=== PATIENT | male | born 1980 | race Caucasian/White ===

== ENCOUNTER 2017-01-03 05:27 | Inpatient (IN) | payer OTHER, MEDICAID ==
[~2017-01-03] VITALS: Ht 170.2 cm; Wt 101.6 kg
[~2017-01-03 05:27] MED LIST: ABILIFY; MOTRIN; NORCO; PRILOSEC40 MG PO; TAMIFLU; ZOF4 PO; ZOFRAN
[2017-01-03 06:53] LABS: CALCIUM 9.6 mg/dL (8.5-10.1); CARBON DIOXIDE 26.6 mmol/L (21-32); CHLORIDE SERUM 104 mmol/L (98-107); CREATININE SERUM 0.9 mg/dL (0.7-1.3); GFR1 > 60 mL/min; GLUCOSE SERUM 114 mg/dL (74-106); POTASSIUM SERUM 4.3 mmol/L (3.5-5.1); SODIUM SERUM 141 mmol/L (136-145)
[2017-01-03 06:58] LABS: ALBUMIN 4.1 g/dL (3.4-5.0); ALKALINE PHOSPHATASE 66 U/L (46-116); ALT/SGPT 28 U/L (16-63); AST/SGOT 25 U/L (15-37); BILIRUBIN TOTAL 0.55 mg/dL (0.20-1.00); LIPASE 126 IU/L (73-393)
[2017-01-03 07:01] LABS: BASOPHIL % 0.4 % (0-2); PLATELET COUNT 314 x10^3mcL (130-400); RED CELL DISTRIBUTION WIDTH 13.4 % (11.5-14.5)
[2017-01-03 07:03] LABS: TOTAL PROTEIN, SERUM 8.3 g/dL (6.4-8.2)
[2017-01-03 08:36] LABS: T3 TOTAL 1.4 ng/mL
[2017-01-03 08:45] LABS: MAGNESIUM 2.1 mg/dL (1.8-2.4); PHOSPHOROUS 4.7 mg/dL (2.5-4.9)
[2017-01-03 08:49] VITALS: BP 139/87
[2017-01-03 08:55] LABS: FREE T4 1.13 ng/dL (0.76-1.46)
[2017-01-03 09:00] VITALS: BP 139/87
[2017-01-03 11:57] LABS: microscopic required? YES; urine erythrocyte NEGATIVE (NEGATIVE)
[2017-01-03 12:06] LABS: AMPHETAMINE QUAL UR NONE DETECTED (NEG <=1000)
[2017-01-03 14:43] VITALS: BP 140/76
[2017-01-03 17:18] VITALS: BP 139/72
[2017-01-03 21:05] VITALS: BP 139/79
[2017-01-04 06:00] VITALS: BP 123/75
[2017-01-04 06:02] LABS: BASOPHIL % 0.4 % (0-2); PLATELET COUNT 294 x10^3mcL (130-400); RED CELL DISTRIBUTION WIDTH 13.2 % (11.5-14.5)
[2017-01-04 06:35] LABS: CALCIUM 8.5 mg/dL (8.5-10.1); CARBON DIOXIDE 27.7 mmol/L (21-32); CHLORIDE SERUM 105 mmol/L (98-107); GFR1 > 60 mL/min; GLUCOSE SERUM 96 mg/dL (74-106); SODIUM SERUM 140 mmol/L (136-145)
[2017-01-04 09:50] VITALS: BP 121/64
[2017-01-04 13:27] VITALS: BP 121/79
[2017-01-04 17:24] VITALS: BP 148/76
[2017-01-04 20:59] VITALS: BP 141/70
[2017-01-05 01:03] VITALS: Ht 170.2 cm; Wt 101.6 kg
[2017-01-05 05:18] VITALS: BP 129/72
[2017-01-05 06:17] LABS: ALBUMIN 3.4 g/dL (3.4-5.0); CALCIUM 8.6 mg/dL (8.5-10.1); CARBON DIOXIDE 25.8 mmol/L (21-32); CHLORIDE SERUM 105 mmol/L (98-107); CREATININE SERUM 0.9 mg/dL (0.7-1.3); GFR1 > 60 mL/min; GLUCOSE SERUM 99 mg/dL (74-106); PHOSPHOROUS 3.1 mg/dL (2.5-4.9); POTASSIUM SERUM 3.8 mmol/L (3.5-5.1); SODIUM SERUM 139 mmol/L (136-145)
[2017-01-05 07:21] LABS: BASOPHIL % 0.5 % (0-2); PLATELET COUNT 293 x10^3mcL (130-400); RED CELL DISTRIBUTION WIDTH 13.2 % (11.5-14.5)
[2017-01-05] MEDS ORDERED: COL250 PO (09:02)
[2017-01-05] MEDS ORDERED: NORCO1 TA2 PO (09:03)
[2017-01-05 09:06] VITALS: BP 116/69
[2017-01-05] MEDS ORDERED: KEFLEX500 M1 PO (09:09)
[2017-01-05] MEDS ORDERED: LAC PO (09:10)
[2017-01-05 12:33] VITALS: BP 116/69
== END 2017-01-05 13:59 | disposition home or self-care (01) | DRG 919 ==
LOC: ED 05:27 → DU 07:27 → MU 07:27 → DU 07:59 → MU 01-04 09:36
PROVIDERS: Emergency Medicine; Family Medicine; Surgery; ADMIT Family Medicine
PROC: 0J9800Z Drainage of Abdomen Subcutaneous Tissue and Fascia with Drainage Device, Open Approach (ICD-10-PCS; principal; 2017-01-03 12:00)
DX: L76.34 Postprocedural seroma of skin and subcutaneous tissue following other procedure (principal); N17.0 Acute kidney failure with tubular necrosis; K76.0 Fatty (change of) liver, not elsewhere classified; R03.0 Elevated blood-pressure reading, without diagnosis of hypertension; Y83.4 Other reconstructive surgery as the cause of abnormal reaction of the patient, or of later complication, without mention of misadventure at the time of the procedure; Y92.009 Unspecified place in unspecified non-institutional (private) residence as the place of occurrence of the external cause
CPT/HCPCS: 80307; 83880; 84439; G0480; J0690; J1885; J2250; J2270; J2405; J2704; J3010; J7030; J7120; Q0092

== ENCOUNTER 2017-08-09 20:11 | Emergency (ER) | payer SELFPAY ==
[~2017-08-09 20:11] MED LIST changes: +COL250 PO; +KEFLEX500 M1 PO; +LAC PO; +NORCO1 TA2 PO
[2017-08-09 23:22] VITALS: BP 152/87
== END 2017-08-09 23:22 | disposition home or self-care (01) ==
LOC: ED 20:11
DX: T81.4XXA Infection following a procedure, initial encounter (principal); L23.9 Allergic contact dermatitis, unspecified cause; Y83.8 Other surgical procedures as the cause of abnormal reaction of the patient, or of later complication, without mention of misadventure at the time of the procedure; Y92.89 Other specified places as the place of occurrence of the external cause
CPT/HCPCS: J1200

== ENCOUNTER 2017-11-25 06:47 | Emergency (ER) | payer MEDICAID ==
[~2017-11-25] VITALS: Ht 167.6 cm; Wt 93.4 kg
[2017-11-25 06:58] VITALS: Ht 167.6 cm; Wt 93.4 kg
[2017-11-25 08:01] LABS: UA SPECIFIC GRAVITY 1.025 (1.005-1.035); microscopic required? YES; urine erythrocyte 2+ (NEGATIVE)
[2017-11-25 11:13] VITALS: BP 146/92
== END 2017-11-25 11:13 | disposition home or self-care (01) ==
LOC: ED 06:47
PROVIDERS: Emergency Medicine
DX: B34.9 Viral infection, unspecified (principal); N39.0 Urinary tract infection, site not specified
CPT/HCPCS: 87804; J0696

== ENCOUNTER 2017-11-27 00:12 | Inpatient (IN) | payer MEDICAID ==
[~2017-11-27] VITALS: Ht 182.9 cm; Wt 110.7 kg
[2017-11-27] VITALS (7 sets, daily range): BP systolic 113–145; BP diastolic 51–73; Ht 182.9 cm; Wt 110.7 kg
[2017-11-27 01:26] LABS: CALCIUM 8.4 mg/dL (8.5-10.1); CARBON DIOXIDE 21.5 mmol/L (21-32); CHLORIDE SERUM 100 mmol/L (98-107); CREATININE SERUM 1.1 mg/dL (0.7-1.3); GFR1 > 60 mL/min; GLUCOSE SERUM 122 mg/dL (74-106); POTASSIUM SERUM 3.7 mmol/L (3.5-5.1); SODIUM SERUM 133 mmol/L (136-145)
[2017-11-27 01:31] LABS: ALKALINE PHOSPHATASE 76 U/L (46-116); ALT/SGPT 8 U/L (16-63); AST/SGOT 21 U/L (15-37); BILIRUBIN TOTAL 0.62 mg/dL (0.20-1.00); TOTAL PROTEIN, SERUM 7.8 g/dL (6.4-8.2)
[2017-11-27 01:32] LABS: ALBUMIN 3.2 g/dL (3.4-5.0)
[2017-11-27 01:33] LABS: BASOPHIL % 0.2 % (0-2); PLATELET COUNT 204 x10^3mcL (130-400); RED CELL DISTRIBUTION WIDTH 13.7 % (11.5-14.5)
[2017-11-27 02:19] LABS: UA SPECIFIC GRAVITY 1.015 (1.005-1.035); microscopic required? YES; urine erythrocyte 2+ (NEGATIVE)
[2017-11-27 02:31] LABS: AMPHETAMINE QUAL UR NONE DETECTED (NEG <=1000)
[2017-11-27 03:05] LABS: FREE T4 1.01 ng/dL (0.76-1.46); FREE THYROXINE INDEX 2.3 ug/dL (1.4-4.5); T4(THYROXINE) 6.4 ug/dL (4.7-13.3)
[2017-11-27 03:21] LABS: MAGNESIUM 1.8 mg/dL (1.8-2.4); PHOSPHOROUS 1.1 mg/dL (2.5-4.9)
[2017-11-27 04:23] LABS: T3 TOTAL 0.76 ng/mL
[2017-11-28 06:00] VITALS: BP 122/71
[2017-11-28 07:45] LABS: BASOPHIL % 0.1 % (0-2); PLATELET COUNT 209 x10^3mcL (130-400)
[2017-11-28 08:43] LABS: CALCIUM 8.2 mg/dL (8.5-10.1); CARBON DIOXIDE 21.3 mmol/L (21-32); CHLORIDE SERUM 106 mmol/L (98-107); CREATININE SERUM 0.9 mg/dL (0.7-1.3); GFR1 > 60 mL/min; GLUCOSE SERUM 100 mg/dL (74-106); PHOSPHOROUS 2.3 mg/dL (2.5-4.9); POTASSIUM SERUM 3.9 mmol/L (3.5-5.1); SODIUM SERUM 138 mmol/L (136-145)
[2017-11-28 10:11] VITALS: BP 114/71
[2017-11-28 18:04] VITALS: BP 125/75
[2017-11-28 21:00] VITALS: BP 143/101
[2017-11-29 05:45] VITALS: BP 146/83
[2017-11-29 07:26] LABS: BASOPHIL % 0.6 % (0-2); PLATELET COUNT 214 x10^3mcL (130-400); RED CELL DISTRIBUTION WIDTH 13.9 % (11.5-14.5)
[2017-11-29 07:45] LABS: CALCIUM 7.9 mg/dL (8.5-10.1); CARBON DIOXIDE 18.9 mmol/L (21-32); CHLORIDE SERUM 103 mmol/L (98-107); CREATININE SERUM 0.9 mg/dL (0.7-1.3); GFR1 > 60 mL/min; GLUCOSE SERUM 99 mg/dL (74-106); MAGNESIUM 1.8 mg/dL (1.8-2.4); PHOSPHOROUS 2.6 mg/dL (2.5-4.9); POTASSIUM SERUM 3.6 mmol/L (3.5-5.1); SODIUM SERUM 134 mmol/L (136-145)
[2017-11-29 09:09] VITALS: BP 134/92
[2017-11-29] MEDS ORDERED: LAC PO (09:28)
[2017-11-29] MEDS ORDERED: LEVAQUIN750 MG PO (09:28)
[2017-11-29] MEDS ORDERED: DIFLUCAN200 MG PO (09:38)
[2017-11-29] MEDS ORDERED: METOPROLOL TART25 M1 PO (09:39)
[2017-11-29] MEDS ORDERED: ZES5 PO (09:39)
[2017-11-29 09:47] VITALS: BP 131/76
== END 2017-11-29 10:34 | disposition home or self-care (01) | DRG 720 ==
LOC: ED 00:12 → DU 01:55 → MU 11-28 07:32
PROVIDERS: Emergency Medicine; Family Medicine
DX: A41.9 Sepsis, unspecified organism (principal); N17.0 Acute kidney failure with tubular necrosis; E87.1 Hypo-osmolality and hyponatremia; E44.1 Mild protein-calorie malnutrition; E83.39 Other disorders of phosphorus metabolism; I08.3 Combined rheumatic disorders of mitral, aortic and tricuspid valves; N39.0 Urinary tract infection, site not specified; Z83.3 Family history of diabetes mellitus; R31.9 Hematuria, unspecified; Z68.32 Body mass index [BMI] 32.0-32.9, adult; M94.0 Chondrocostal junction syndrome [Tietze]; E05.80 Other thyrotoxicosis without thyrotoxic crisis or storm
CPT/HCPCS: 82962; 83880; 84439; 87804; J1450; J1885; J1956; J2543; J7030; J7040; Q0092; Q9967

== ENCOUNTER 2019-01-02 21:55 | Inpatient (IN) | payer SELFPAY ==
[~2019-01-02] VITALS: Ht 167.6 cm; Wt 105.8 kg
[~2019-01-02 21:55] MED LIST changes: +DIFLUCAN200 MG PO; +LEVAQUIN750 MG PO; +METOPROLOL TART25 M1 PO; +ZES5 PO
[2019-01-02 22:15] VITALS: Ht 167.6 cm; Wt 105.8 kg
--- NOTE | 2019-01-02 22:18 | NUR ---
EKG IN PROGRESS IN TRIAGE.
--- NOTE | 2019-01-02 22:43 | NUR ---
PT. IN ED WITH C/O OF EPIGASTRIC PAIN AND N/V X6HRS. DENIES FEVERS, DIRRHEA OR BLOOD IN EMESIS. ALSO REPORTS PAST MEDICAL HX OF GI BLEED AND HAD "SURGEY ON STOMACH". SURGICAL SCAR TO ABD AREA NOTED. PT. AAOX4, TALKING AND RESPONDIG APPROPRIATELY. BREATHING E/U. IN MODERATE DISTESS. STATES HE IS UNABLE TO PROVIDE URINE SAMPLE AT THIS TIME. AWAITING MSE.
--- NOTE | 2019-01-03 00:40 | NUR ---
PT. MEDICATED PER MAR. NO ADVERSE REACTIONS NOTED. CALL LIGHT IN REACH, WILL CONTINUE TO MONITOR.
[2019-01-03 00:44] LABS: BASOPHIL % 0.4 % (0-2); PLATELET COUNT 352 x10^3mcL (130-400)
[2019-01-03 00:46] LABS: CALCIUM 8.8 mg/dL (8.5-10.1); CHLORIDE SERUM 102 mmol/L (98-107); CREATININE SERUM 1.1 mg/dL (0.7-1.3); GFR1 > 60 mL/min; GLUCOSE SERUM 110 mg/dL (74-106); POTASSIUM SERUM 4.3 mmol/L (3.5-5.1); SODIUM SERUM 141 mmol/L (136-145)
[2019-01-03 00:52] LABS: ALKALINE PHOSPHATASE 68 U/L (46-116); ALT/SGPT 42 U/L (16-63); AST/SGOT 30 U/L (15-37); BILIRUBIN TOTAL 0.7 mg/dL (0.20-1.00); CHOLESTEROL 157 mg/dL (<200); CHOLESTEROL/HDL RATIO 3.8; HDL CHOLESTEROL 41 mg/dL (40-60); LIPASE 134 IU/L (73-393)
[2019-01-03 00:53] LABS: TOTAL PROTEIN, SERUM 8.3 g/dL (6.4-8.2); TRIGLYCERIDES 227 mg/dL (<150)
[2019-01-03 00:55] LABS: T3 TOTAL 1.12 ng/mL
[2019-01-03 00:57] LABS: FREE T4 0.95 ng/dL (0.76-1.46); FREE THYROXINE INDEX 2.7 ug/dL (1.4-4.5); T4(THYROXINE) 7.6 ug/dL (4.7-13.3)
--- NOTE | 2019-01-03 01:40 | NUR ---
PT. UP TO RESTROOM, AMBULATES WITH STEADY GAIT. STATES HE IS FEELING BETTER AFTER MEDICATIONS. REPORTS ABD PAIN IS NOW 2/10. CALL LIGHT IN REACH. WILL CONTINUE TO MONITOR.
[2019-01-03 01:47] LABS: UA SPECIFIC GRAVITY 1.015 (1.005-1.035); microscopic required? YES; urine erythrocyte NEGATIVE (NEGATIVE)
--- NOTE | 2019-01-03 03:11 | NUR ---
PTRocio GARCIA IN POSITION OF COMFORT. BREATING E/U. NOT IN ANY APPARENT DISTESS. CALL LIGHT IN REACH. WILL CONTINUE TO MONITOR.
--- NOTE | 2019-01-03 04:45 | NUR ---
PT. SLEEPING, EASILY ARROUSABLE. REPORTS PAIN IS 2/10 TO ABD AREA. NOT IN ANY APPARENT DISTRESS AT THIS TIME. AWAITING TRANSFER TO MED SURG. CALL LIGHT IN REACH. WILL CONTINUE TO MONITOR.
[2019-01-03 04:51] LABS: MAGNESIUM 2.2 mg/dL (1.8-2.4); PHOSPHOROUS 3.4 mg/dL (2.5-4.9)
--- NOTE | 2019-01-03 07:16 | NUR ---
REPORT GIVEN TO RHYS JOSUE FOR FURTHER CARE OF PATIENT. ALL QUESTIONS ANSWERED.
[2019-01-03 08:08] VITALS: BP 124/75
--- NOTE | 2019-01-03 08:50 | NUR ---
RECIEVED PT FROM ED. PT IS AWAKE, ALERT, AND ORIENTED. HAS NO COMPLAINT OF PAIN, SOB, OR DIZZINESS. RESPONDS WELL TO QUESTION AND ANSWER. CLEAR IDRIS LUNG FIELD, SYMMETRICAL CHEST EXPANSION AND UNLABORED. ACTIVE BOWEL SOUNDS NOTED. NON DISTENDED ABDOMEN. SKIN INTACT. SIDE RAILS UP, CALL LIGHT WITHIN REACH, WILL CONTINUE TO MONITOR
[2019-01-03 09:25] LABS: BASOPHIL % 0.3 % (0-2); PLATELET COUNT 332 x10^3mcL (130-400); RED CELL DISTRIBUTION WIDTH 13.5 % (11.5-14.5)
[2019-01-03 09:33] LABS: CALCIUM 8.3 mg/dL (8.5-10.1); CARBON DIOXIDE 27.6 mmol/L (21-32); CHLORIDE SERUM 106 mmol/L (98-107); CREATININE SERUM 0.9 mg/dL (0.7-1.3); GFR1 > 60 mL/min; GLUCOSE SERUM 97 mg/dL (74-106); LIPASE 150 IU/L (73-393); POTASSIUM SERUM 3.9 mmol/L (3.5-5.1); SODIUM SERUM 140 mmol/L (136-145)
[2019-01-03] MEDS ORDERED: MIRUD PO (15:29)
[2019-01-03 15:36] VITALS: BP 124/75
--- NOTE | 2019-01-03 16:03 | NUR ---
D/C INSTRUCTION DONE. IV AND TELE HAS BEEN D/C
== END 2019-01-03 16:12 | disposition home or self-care (01) | DRG 391 ==
LOC: ED 21:55 → MU 01-03 04:14 → DU 01-03 08:00
PROVIDERS: Specialist; ADMIT General Practice
DX: K59.00 Constipation, unspecified (principal); N17.0 Acute kidney failure with tubular necrosis; Z90.49 Acquired absence of other specified parts of digestive tract; D72.829 Elevated white blood cell count, unspecified; Z79.899 Other long term (current) drug therapy; Z83.3 Family history of diabetes mellitus; E78.5 Hyperlipidemia, unspecified
CPT/HCPCS: 83880; 84439; J2405; J3490; J7030; Q0092